=== PATIENT | female | born 1965 | race Caucasian/White ===

== ENCOUNTER 2022-09-23 17:44 | Inpatient (IN) | payer OTHER ==
[~2022-09-23] VITALS: Ht 152.4 cm; Wt 85.7 kg
--- NOTE | 2022-09-23 17:51 | NUR ---
BIBA TO BED 6.
[2022-09-23 17:53] VITALS: BP 110/70
[2022-09-23] MEDS ORDERED: MORPHINE SULFATE 4 MG/ML SYR IVP ONE (17:55)
--- NOTE | 2022-09-23 18:00 | NUR ---
NOTED PT UNRESPONSIVE TO PAIN, SATTING 50-80% ON NRB, DR WARREN AT BEDSIDE, PULSES PALPABLE
--- NOTE | 2022-09-23 18:00 | NUR ---
Arnold chavez in EDM - 09/23/22 at 1843 by XIMENA NOTED PT UNRESPONSIVE, FRANCISCO JAVIERR KELVIN AT BEDSIDE, PT DILATED PUPILS, STARTED BAGGING
[2022-09-23] MEDS ORDERED: INTUBATION KIT MC ONE ×2 (18:05→18:15)
--- NOTE | 2022-09-23 18:05 | NUR ---
1813 - 4mg narcan ivp given 1814 - pt awake and looking around room, pupils dilated 6mm 1819 - etomidate 20mg ivp given 1820 - succ 100mg ivp given 1824 - epi 1mg given
[2022-09-23] MEDS ORDERED: NALOXONE PFS 2 MG/2 ML SYR ONE ×2 (18:13)
[2022-09-23] MEDS ORDERED: NALOXONE 0.4 MG/ML VIAL IVP ONE (18:15)
--- NOTE | 2022-09-23 18:21 | NUR ---
22 @ lip 7.5 size intubation
[2022-09-23] MEDS ORDERED: PROPOFOL 1000 MG/100 ML PREMIX 0 ML IV ONE (18:22)
[2022-09-23] MEDS ORDERED: NACL 0.9% 1,000 ML IV ONE ×3 (18:30→21:20)
[2022-09-23] MEDS ORDERED: cefTRIAXone 1,000 MG in DEXT 5% MINI-BAG PLUS 50 ML IV ONE (18:35)
[2022-09-23] MEDS ORDERED: NACL 0.9% 2,000 ML IV SCH (18:35)
[2022-09-23] MEDS ORDERED: MIDAZOLAM 5 MG/5 ML VIAL ONE (18:49)
[2022-09-23] MEDS ORDERED: MIDAZOLAM MDV 50 MG in NACL 0.9% 40 ML IV PRN (18:50)
[2022-09-23] MEDS ORDERED: MIDAZOLAM 5 MG/5 ML VIAL IV ONE (18:50)
[2022-09-23 19:08] LABS: BASOPHILS # (AUTO) 0.1 K/uL (0.00-0.22); BASOPHILS % (AUTO) 0.8 % (0.0-2.0); EOSINOPHILS % (AUTO) 0.2 % (0.0-4.0); HEMATOCRIT 33.7 % (36-48); HEMOGLOBIN 10.5 g/dL (12.0-16.0); LYMPHOCYTES # (AUTO) 2.4 K/uL (2.5-16.5); LYMPHOCYTES % (AUTO) 15.6 % (20.5-51.1); MEAN CORPUSCULAR HEMOGLOBIN 29 pg (27-31); MEAN CORPUSCULAR HGB CONC 31 g/dL (33-37); MONOCYTES # (AUTO) 1.2 K/uL (0.8-1.0); MONOCYTES % (AUTO) 7.7 % (1.7-9.3); NEUTROPHILS # (AUTO) 11.5 K/uL (1.8-7.7); NEUTROPHILS % (AUTO) 75.7 % (42.2-75.2); PLATELET COUNT (AUTO) 266 K/uL (140-450); RED BLOOD CELL COUNT(AUTO) 3.66 MIL/uL (4.20-5.40); WHITE BLOOD COUNT (AUTO) 15.2 K/uL (4.8-10.8)
[2022-09-23 19:17] VITALS: BP 79/35
--- NOTE | 2022-09-23 19:18 | NUR ---
GAVE REPORT TO SHAMEKA MENDOZA.
[2022-09-23] MEDS ORDERED: ETOMIDATE 20 MG/10 ML VIAL IVP ONE (19:20)
[2022-09-23] MEDS ORDERED: EPINEPHrine PFS 0.1 MG/ML SYR IVP ONE (19:20)
[2022-09-23] MEDS ORDERED: SUCCINYLCHOLINE CHLORIDE 200 MG/10 ML VIAL IVP ONE (19:20)
[2022-09-23 19:30] LABS: ALBUMIN 2.8 g/dL (3.4-5.0); ANION GAP 26.3 (8-16); CREATININE 2.6 mg/dL (0.6-1.3); POTASSIUM 3.3 mmol/L (3.5-5.1); TOTAL BILIRUBIN 0.5 mg/dL (0.0-1.0)
[2022-09-23] MEDS ORDERED: NOREPINEPHRINE 4 MG/4 ML VIAL IV ONE ×3 (19:30→23:34)
[2022-09-23] MEDS ORDERED: NOREPINEPHRINE 4 MG in DEXTROSE 5% 250 ML IV ONE (19:30)
--- NOTE | 2022-09-23 19:30 | NUR ---
Assumed care of patient, s/p intubation after being found unresponsive. Pt noted tachycardic and hypotensive at this time, titrating levophed as per order.
--- NOTE | 2022-09-23 20:17 | NUR ---
Pt continues to by hypotensive at this time. Levophed being titrated as per ordered.
--- NOTE | 2022-09-23 20:27 | NUR ---
REQUESTS FOR PICC LINE INSERTION, HOUSE SUPERVISIOR ALBIN STATES NO MORE PICC LINE AFTER HOURS, ROSE WARREN MADE AWARE.
--- NOTE | 2022-09-23 21:00 | NUR ---
Titration held pending central line, pt currently running levophed 22mcg. Dr. Franz made aware, is almost ready for central line placement.
--- NOTE | 2022-09-23 21:04 | NUR ---
Daughter by bedside at this time.
[2022-09-23] MEDS ORDERED: VANCOMYCIN PER PHARMACY MC PRN (21:20)
--- NOTE | 2022-09-23 21:27 | NUR ---
RT by bedside at this time collecting ABGs
--- NOTE | 2022-09-23 21:34 | NUR ---
Dr. Franz by bedside to insert central line
[2022-09-23] MEDS ORDERED: PIPERACILLIN/TAZOBACTAM 2.25 GM in DEXTROSE 5% 50 ML IV SCH (21:35)
[2022-09-23] MEDS ORDERED: VANCOMYCIN 1GM/DEXT 5% PREMIX 200 ML IV SCH (21:40)
--- NOTE | 2022-09-23 22:00 | NUR ---
Central line inserted on right femoral by ROSE.
--- NOTE | 2022-09-23 22:00 | NUR ---
Inaccurate BP reading from bedside monitor and portable BP attempted but unable to picker and packer BP. Multiple attempts done. retail inventory control clerk made aware and assisting with BP.
--- NOTE | 2022-09-23 22:18 | NUR ---
RT by bedside
[2022-09-23] MEDS ORDERED: PIPERACILLIN/TAZOBACTAM 2.25 GM VIAL IV ONE (22:22)
--- NOTE | 2022-09-23 23:30 | NUR ---
Patient to CT with RT and 2 nurses
--- NOTE | 2022-09-24 | NUR ---
Pt transferred to ICU, report given to Julia MENDOZA accompanied by RT, 2 nurses
[2022-09-24 00:15] VITALS: BP 57/26
--- NOTE | 2022-09-24 00:20 | NUR ---
TRANSFER OF CARE TO ICU FROM ER, DURING TRANSFER FROM [facility] TO [facility], PATIENT'S LEG JERKED AND AND FEMORAL LINE CATHETER CAME OUT OF PLACE. PRESSURE WAS APPLIED TO SITE FOR 15 MINUTES BY THE ER NURSING STAFF. PATIENT WAS RECEIVED ETT TO VENT, NON-RESPONSIVE. PATIENT WITH HYPOTENSION AND TACHYCARDIA VITALS AT TIME OF ADMISSION TO ICU HR = 101 BP = 57/26 O2 = 98 R = 48 TEMP = 97.3
[2022-09-24 00:30] VITALS: BP 106/76
[2022-09-24] MEDS ORDERED: NOREPINEPHRINE 8 MG in DEXTROSE 5% 250 ML IV PRN (00:30)
[2022-09-24] MEDS ORDERED: VASOPRESSIN 20 UNITS/ML VIAL ONE (01:31)
--- NOTE | 2022-09-24 01:33 | NUR ---
MESSAGE TO DR. DONNELLY: PATIENT IS CURRENTLY MAXED ON LEVOPHED, REQUESTING ORDERS FOR VASOPRESSIN PATIENT ALSO WITH A LACTIC ACID = 7, AND TROPONIN = 175 MD CALLED BACK WITH ORDERS FOR ALVINO-SYNEPHRINE AND 2L NS FLUID BOLUS SOLU-CORTEF Q6
[2022-09-24] MEDS ORDERED: PHENYLEPHRINE 10 MG/ML VIAL ONE (01:38)
[2022-09-24] MEDS ORDERED: NACL 0.9% 1,000 ML IV SCH (01:40)
[2022-09-24] MEDS ORDERED: PHENYLEPHRINE 10 MG/ML VIAL IV SCH (01:40)
[2022-09-24] MEDS ORDERED: VANCOMYCIN PER PHARMACY MC PRN (01:50)
[2022-09-24] MEDS ORDERED: PHENYLEPHRINE 40 MG in NACL 0.9% 250 ML IV PRN (01:50)
--- NOTE | 2022-09-24 01:58 | NUR ---
MESSAGE SENT TO MD, PATIENT MAXED OUT ON NEOSYNEPHRINE BP = 70/40 RECEIVED 2L FLUID BOLUS ORDERS RECEIVED TO START VASOPRESSIN
[2022-09-24] MEDS ORDERED: VASOPRESSIN 20 UNITS in NACL 0.9% 250 ML IV SCH (02:05)
[2022-09-24] MEDS ORDERED: VANCOMYCIN 1,000 MG VIAL ONE (02:07)
[2022-09-24] MEDS ORDERED: VASOPRESSIN 40 UNITS in NACL 0.9% 250 ML IV SCH (02:15)
[2022-09-24] MEDS ORDERED: NOREPINEPHRINE 4 MG/4 ML VIAL IV ONE (02:42)
--- NOTE | 2022-09-24 02:44 | NUR ---
MESSAGE SENT TO DR. DONNELLY; PATIENT MAXED ON ALL PRESSORS, REQUEST TO START EPI DRIP MD ORDERS: 2 MORE LITERS FLUID BOLUS ORDER FOR PICC LINE
[2022-09-24] MEDS ORDERED: SODIUM BICARBONATE 8.4% PFS 50 MEQ/50 ML SYR IVP SCH (02:50)
[2022-09-24] MEDS ORDERED: SODIUM BICARBONATE 8.4% PFS 50 MEQ/50 ML SYR IVP ONE (02:56)
[2022-09-24 04:00] VITALS: BP 65/38
[2022-09-24 04:10] VITALS: BP 50/36
[2022-09-24] MEDS ORDERED: PIPERACILLIN/TAZOBACTAM 2.25 GM in DEXTROSE 5% 50 ML IV SCH (05:00)
--- NOTE | 2022-09-24 05:13 | NUR ---
ASSISTED WITH TRANSFER TO [place]. BLOOD PRESSURE ON PORTABLE STREET SWEEPER OPERATOR WENT FROM 135/85 TO 57/32 AND SO LEVOPHED WAS MAXED OUT TO 30 MCG/MIN/HR AND BLOOD PRESSURE INCREASED TO 68/40. VERSED WAS THEN TURNED OFF FOR SUSPICION OF HYPOTENSIVE RESPONSE TO MED AND BLOOD PRESSURE INCREASED TO 135/50. PT IMMEDIATELY RUSHED TO ICU AND TRANSFERRED TO BED. HOWEVER MID TRANSFER ON TO BED, THE PATIENT JERKED HER LEG AND PULLED ABOUT 8 CM OF CATHETER OUT OF FEMORAL LINE AND WAS BLEEDING PROFUSELY. PRESSURE WAS HELD ON SITE FOR 15 MINS UNTIL BLEEDING Addendum: 09/24/22 at 0538 by Agency 03 RN RN BLEEDING STOPPED WITHOUT FURTHER COMPLICATION. BILATERAL INTRAOSSEOUS ACCESS WAS ESTABLISHED FOR PRESSOR/IV ACCESS PATIENT WAS HYPOTENSIVE AND WENT UP BUT MAP REMAINED WELL BELOW 60 VARYING FROM 40-55. MD DONNELLY WAS MADE AWARE AND NEOSYNEPHRINE AND VASOPRESSOR DRIP WAS STARTED AND MAXED OUT DUE TO PERSISTENTLY LOW BP. PERIPHERAL ACCESS WAS ESTABLISHED FOR IV BOLUS ACCESS.
--- NOTE | 2022-09-24 05:18 | NUR ---
PATIENT CODED, CODE TEAM AT BEDSIDE, ABLE TO ACHIEVE ROSC ER DOC AT BEDSIDE COMPLETED INSERTION OF CENTRAL LINE INTO LEFT FEMORAL ARTERY RIGHT CODE STARTED FAMILY IS AT BEDSIDE MESSAGE SENT TO DR. DONNELLY, AND DR PALACIOS
--- NOTE | 2022-09-24 05:53 | NUR ---
PATIENT'S FAMILY AT BEDSIDE, MADE PATIENT A DNR; DTR MARTA GRANGER SIGNED FORM DR. DONNELLY NOTIFIED
[2022-09-24] MEDS ORDERED: HYDROCORTISONE NA SUCC 100 MG/2 ML VIAL IV SCH (06:00)
[2022-09-24] MEDS ORDERED: BLOOD GLUCOSE MONITORING 1 DEV DEV FS SCH (06:00)
[2022-09-24 06:09] LABS: ANION GAP 21.4 (8-16); CARBON DIOXIDE 16.5 mmol/L (21-32); CREATININE 2.9 mg/dL (0.6-1.3)
[2022-09-24 06:14] LABS: BASOPHILS # (AUTO) 0.1 K/uL (0.00-0.22); BASOPHILS % (AUTO) 0.6 % (0.0-2.0); EOSINOPHILS # (AUTO) 0.1 K/uL (0-0.4); EOSINOPHILS % (AUTO) 0.7 % (0.0-4.0); HEMATOCRIT 31.1 % (36-48); HEMOGLOBIN 9.7 g/dL (12.0-16.0); LYMPHOCYTES % (AUTO) 28.6 % (20.5-51.1); MEAN CORPUSCULAR HEMOGLOBIN 29 pg (27-31); MEAN CORPUSCULAR HGB CONC 31 g/dL (33-37); MEAN CORPUSCULAR VOLUME 91.5 fL (80-94); MONOCYTES # (AUTO) 0.5 K/uL (0.8-1.0); MONOCYTES % (AUTO) 4.7 % (1.7-9.3); NEUTROPHILS # (AUTO) 6.8 K/uL (1.8-7.7); NEUTROPHILS % (AUTO) 65.4 % (42.2-75.2); PLATELET COUNT (AUTO) 236 K/uL (140-450); RED CELL DISTRIBUTION WIDTH 19.9 % (11.6-13.7); WHITE BLOOD COUNT (AUTO) 10.4 K/uL (4.8-10.8)
--- NOTE | 2022-09-24 06:15 | NUR ---
PATIENT , DR. DONNELLY AND DR. PALACIOS NOTIFIED CALL PLACED TO [facility] AND [facility]'S OFFICE [facility]: SPOKE WITH YOAV, REFERENCE NUMBER: [id number] [facility] OFFICE, SPOKE WITH LIZZETH WHO WILL HAVE OFFICER CALL BACK TO GET REPORT
[2022-09-24 06:38] LABS: POTASSIUM 2.9 mmol/L (3.5-5.1)
--- NOTE | 2022-09-24 08:00 | NUR ---
ASSUMED CARE OF PT AT THIS TIME. PT SUPINE WITH VENTILATOR AT 100% FIO2. FAMILY AT BEDSIDE.
--- NOTE | 2022-09-24 08:12 | NUR ---
TRANSFER OF POST MORTEM CARE ENDORSED TO [facility]
--- NOTE | 2022-09-24 08:49 | NUR ---
PATIENT HAS BEEN SCREENED AND CATEGORIZED HIGH NUTRITION RISK. PATIENT WILL BE SEEN WITHIN 1-2 DAYS OF ADMISSION. / RD RECEIVED REFERRAL REQUEST FOR INTUBATED PT AND FNS NUTRITION CONSULT FOR WOUNDS/PRESSURE ULCERS ON 09/24/[address] SIMMONS RD
--- NOTE | 2022-09-24 11:22 | NUR ---
SPOKE TO CHILD DEVELOPMENT DIRECTOR SHAMEKA HORNE, CASE # [id number]. PT MADE TO BE CHILD DEVELOPMENT DIRECTOR'S CASE. ALL LINES TO REMAIN IN PLACE. FAMILY UPDATED.
--- NOTE | 2022-09-24 12:03 | NUR ---
RECEIVED FOLLOW UP PHONE CALL FROM GENETIC ENGINE[facility]. EXPLAINED THEY SPOKE TO PT FAMILY AND RECEIVED MORE INFORMATION. BODY RELEASED BY GENETIC ENGINEER AND NO LONGER GENETIC ENGINEER'S CASE.
--- NOTE | 2022-09-24 12:15 | NUR ---
CALLED [facility], THEY STATED OK TO EXTUBATE PT AND THAT THEY WILL FOLLOW UP ON THE CASE.
--- NOTE | 2022-09-24 12:41 | NUR ---
1230 TERMINAL EXTUBATION/ REQUEST FOR SERVICE. PT EXTUBATED AND VENT SUPPORT SHUT OFF 1230.
--- NOTE | 2022-09-24 12:45 | NUR ---
POST MORTEM CARE PROVIDED, REMOVED ALL LINES AND TUBES. CLEANED AND PLACED IN BODY BAG.
--- NOTE | 2022-09-24 14:40 | NUR ---
PT IN BODY BAG, NO BELONGINGS, TRANSPORT HERE TO COLLECT THE BODY. FAMILY AT BEDSIDE, MADE AWARE OF TRANSFER.
== END 2022-09-24 14:40 | DRG 871 ==
LOC: MED 17:44 → MTU 21:18 → MIC 23:20
PROC: 06HY33Z Insertion of Infusion Device into Lower Vein, Percutaneous Approach (ICD-10-PCS; principal; 2022-09-23)
PROC: B54BZZA Ultrasonography of Right Lower Extremity Veins, Guidance (ICD-10-PCS; 2022-09-23)
PROC: 0BH17EZ Insertion of Endotracheal Airway into Trachea, Via Natural or Artificial Opening (ICD-10-PCS; 2022-09-23)
PROC: 5A1935Z Respiratory Ventilation, Less than 24 Consecutive Hours (ICD-10-PCS; 2022-09-23)
PROC: 06HY33Z Insertion of Infusion Device into Lower Vein, Percutaneous Approach (ICD-10-PCS; 2022-09-24)
PROC: B54CZZA Ultrasonography of Left Lower Extremity Veins, Guidance (ICD-10-PCS; 2022-09-24)
PROC: 5A12012 Performance of Cardiac Output, Single, Manual (ICD-10-PCS; 2022-09-24)
DX: A41.9 Sepsis, unspecified organism (principal); J96.20 Acute and chronic respiratory failure, unspecified whether with hypoxia or hypercapnia; N17.0 Acute kidney failure with tubular necrosis; R65.21 Severe sepsis with septic shock; D64.9 Anemia, unspecified; E87.6 Hypokalemia; R73.9 Hyperglycemia, unspecified; I11.0 Hypertensive heart disease with heart failure; I50.9 Heart failure, unspecified; Z20.822 Contact with and (suspected) exposure to COVID-19
CPT/HCPCS: 31500; 36415; 36556; 36600; 70450; 71045; 72131; 80048; 80053; 82803; 82948; 83605; 83880; 84484; 85025; 87040; 87070; 87081; 87205; 92950; 93005; 94002; 94003; 96361; 96365; 96375; 99291; J2250; J2310; J2370; J2543; J2704; J3370; J3490; J7060; Q0092